=== PATIENT | female | born 1950 | race Caucasian/White ===

== ENCOUNTER 2018-08-10 10:00 | Outpatient (CLI) | payer MEDICARE ==
[~2018-08-10 10:00] MED LIST: BARIUM SULFATE 1,900 ML ORAL.SUSP ONE
== END 2018-08-10 23:59 | disposition home or self-care (01) ==
LOC: RAD 10:00
PROVIDERS: ATTEND Surgery
DX: Z12.11 Encounter for screening for malignant neoplasm of colon (principal); K57.30 Diverticulosis of large intestine without perforation or abscess without bleeding; F17.200 Nicotine dependence, unspecified, uncomplicated
CPT/HCPCS: 74280

== ENCOUNTER → 2023-10-14 | Day surgery (SDC) | payer MEDICARE ==
[2023-10-10 12:59] LABS: BASOPHILS % (AUTO) 0.8 % (0-1); EOSINOPHILS # (AUTO) 0.1 X10'3 (0-0.9); EOSINOPHILS % (AUTO) 1.9 % (0-6); HEMATOCRIT 40.4 % (35.0-45.0); HEMOGLOBIN 13.6 g/dl (12.0-16.0); LYMPHOCYTES # (AUTO) 1.6 X10'3 (1.1-4.8); MEAN CORPUSCULAR HEMOGLOBIN 33.4 PG (27.0-31.0); MEAN CORPUSCULAR HGB CONC 33.6 g/dL (33.0-36.5); MEAN CORPUSCULAR VOLUME 99.5 FL (78-98); MEAN PLATELET VOLUME 6.6 FL (7.4-10.4); MONOCYTES # (AUTO) 0.5 X10'3 (0-0.9); MONOCYTES % (AUTO) 8.8 % (2-12); NEUTROPHILS # (AUTO) 3.8 X10'3 (1.8-7.7); NEUTROPHILS % (AUTO) 62.5 % (42-75); PLATELET COUNT 347 X10'3 (140-440); RED BLOOD COUNT 4.06 X10'6 (4.20-5.60); RED CELL DISTRIBUTION WIDTH 13.4 % (11.5-14.5); WHITE BLOOD COUNT 6.2 X10'3 (4.5-11.0)
[2023-10-10 13:22] LABS: ALBUMIN 3.8 G/DL (3.4-5.0); ANION GAP 13 (8-16); APTT 27 SECONDS (22-32); BLOOD UREA NITROGEN 22 MG/DL (7-18); BUN/CREATININE RATIO 23.2 (10.0-20.0); CALCIUM 8.9 MG/DL (8.5-10.1); CHLORIDE 104 MMOL/L (99-107); CHOL/HDL RATIO 1.6 (0.00-4.99); CHOLESTEROL 192 MG/DL (0-200); CREATININE 0.95 MG/DL (0.40-0.90); GLUCOSE 91 MG/DL (70-104); HDL CHOLESTEROL 121 MG/DL (35-60); LDL CHOLESTEROL 59 MG/DL (50-100); POTASSIUM 3.8 MMOL/L (3.5-5.1); PROTHROMBIN TIME 10.8 SECONDS (9.0-12.0); SODIUM 137 MMOL/L (135-145); TOTAL CARBON DIOXIDE 20.3 MMOL/L (24-32); TRIGLYCERIDES 43 MG/DL (20-135); eGFR 58 ML/MIN
[2023-10-14] VITALS (9 sets, daily range): BP systolic 132–187; BP diastolic 52–94; PULSE 68–99; RESP 10–12; TEMP 98; O2SAT 97–99
[~2023-10-14] VITALS: Ht 157.5 cm; Wt 53.3 kg
[~2023-10-14] MED LIST changes: +ALBU18HF2 INH; +AMLO5TAB16 PO; +ASPI-611 PO; +ATOR40TA72 PO; -BARIUM SULFATE 1,900 ML ORAL.SUSP ONE; +BUPR-317 PO; +HYDROcodone/acetaminophen 10/325mg tab PO PRN; +HYDROcodone/acetaminophen 5mg/325mg tablet PO PRN; +IBUP-24 PO; +LIDOcaine 1% (10mg/ml) 2ml vial ONE; +LIDOcaine 1% 30ml preserv. free vial ONE; +NICO1PAT36 TOP; +NITR0.4T48 SL; +UMEC1DIS INH; +aspirin 325mg tablet ONE; +clopidogrel 300mg tablet ONE; +fentaNYL/PF 50MCG/1 ML 2ML syringe ONE; +heparin 1,000unit/ml 10ml vial 10 ML ONE; +iohexol 350MG/ML 100ml bottle IV ONE; +midazolam 1 mg/ML 2ml injection ONE; +nitroGLYCERIN 500mcg/5mL D5W 5 ML IV ONE; +verapamil 2.5 mg/ml inj IV ONE
[2023-10-14] MEDS: LORazepam 0.5 MG tablet PO PRN (12:48)
[2023-10-14] MEDS: normal saline 1,000 ML IV SCH (12:49)
[2023-10-14] MEDS: diphenhydrAMINE 25mg capsule PO PRN (12:50)
== END | disposition home or self-care (01) ==
LOC: SSTAY O 11:54
PROVIDERS: ATTEND Student in an Organized Health Care Education/Training Program
DX: R07.9 Chest pain, unspecified (principal); I25.10 Atherosclerotic heart disease of native coronary artery without angina pectoris; I10 Essential (primary) hypertension; E78.00 Pure hypercholesterolemia, unspecified; Z79.1 Long term (current) use of non-steroidal anti-inflammatories (NSAID); Z79.82 Long term (current) use of aspirin; Z79.899 Other long term (current) drug therapy; Z95.1 Presence of aortocoronary bypass graft
CPT/HCPCS: 36415; 80048; 80061; 85025; 85610; 85730; 93005; 93459; 99152; 99153; C1874; C9600; J1644; J2250; J3010; J3490; J7030; Q9967; 93458; A6258; C1725; C1751; C1760; C1769; C1894